=== PATIENT | female | born 1975 | race African-American/Black ===

== ENCOUNTER 2018-05-15 00:17 | Emergency (ER) | payer MEDICAID ==
[2018-05-15 00:50] LABS: % BASOPHILS 0.7 % (0.0-2.0); % EOSINOPHILS 0.6 % (0.0-5.0); % LYMPHOCYTES 41.2 % (20.0-50.0); % MONOCYTES 5.6 % (2.0-10.0); % NEUTROPHILS 51.9 % (40.0-80.0); HEMATOCRIT 41.2 % (41.0-60); HEMOGLOBIN 13.3 gm/dL (12-16); LYMPHOCYTE ABSOLUTE 2.7 Th/cmm (1.5-3.0); MEAN CELL VOLUME 83.3 fl (81-100); MEAN CORPUSCULAR HEMOGLOBIN 26.9 pg (27.0-31.0); MEAN CORPUSCULAR HGB CONC 32.3 pg (28.0-36.0); MONOCYTE ABSOLUTE 0.4 Th/cmm (0.3-1.0); NEUTROPHILE ABSOLUTE 3.5 Th/cmm (1.8-8.0); PLATELET COUNT 266 Th/cmm (150-400); RED BLOOD COUNT 4.95 Mil/cmm (3.80-5.10); RED CELL DISTRIBUTION WIDTH 13.8 % (11.5-20.0); WHITE BLOOD COUNT 6.6 Th/cmm (4.8-10.8)
--- NOTE | 2018-05-15 01:26 | ED Physician Chart ---
ED Chief Complaint/HPI - Patient Information Date Seen:: 05/15/18 Time Seen:: 01:00 Chief Complaint:: CP History of Present Illness:: 42 YR OLD BF HX OF LUMPECTOMY LT BREAST FOR CANCER WITH PAIN LT LOWER BREAST AREA SHARP STABBING GAS PAINS LIKE TOOK A SPRITE AND PAIN BECAME WORSE Allergies:: Allergies Allergy/AdvReac Type Severity Reaction Status Date / Time metronidazole [From Flagyl] Allergy Verified 05/15/18 00:28 morphine Allergy Verified 05/15/18 00:28 Vitals:: Vital Signs - 8 hr 05/15/18 05/15/18 00:17 00:48 Temp 97.5 F 97.5 F HR 81 81 RR 18 18 BP 129/80 128/87 O2 Sat % 100 98 ED Review of Systems - Review of Systems General/Constitutional: No fever, No chills, No weight loss, No weakness, No diaphoresis, No edema, No loss of appetite Skin: No skin lesions, No rash, No bruising Head: No headache, No light-headedness Eyes: No loss of vision, No pain, No diplopia ENT: No earache, No nasal drainage, No sore throat, No tinnitus Neck: No neck pain, No swelling, No thyromegaly, No stiffness, No mass noted Cardio Vascular: Chest pain Pulmonary: No SOB, No cough, No sputum, No wheezing GI: No nausea, No vomiting, No diarrhea, No pain, No melena, No hematochezia, No constipation, No hematemesis G/U: No dysuria, No frequency, No hematuria Musculoskeletal: No bone or joint pain, No back pain, No muscle pain Endocrine: No polyuria, No polydipsia Psychiatric: No prior psych history, No depression, No anxiety, No suicidal ideation Hematopoietic: No bruising, No lymphadenopathy Allergic/Immuno: No urticaria, No angioedema Neurological: No syncope, No focal symptoms, No weakness, No paresthesia, No headache, No seizure, No dizziness, No confusion, No vertigo ED Past Medical History - Past Medical History Past Medical History: Other (LT BREAST CA ON CHEMO) Family Medical History - Family Member Mother History Unknown: Yes ED Physical Exam - Physical Examination General/Constitutional: Awake, Well-developed, well-nourished, Alert, No distress, GCS 15, Non-toxic appearing, Ambulatory Other Gen/Cons comments:: MILD DISTRESS SEC TO LT BREAST PAIN Head: Atraumatic Eyes: Lids, conjuctiva normal, PERRL, EOMI Skin: Nl inspection, No rash, No skin lesions, No ecchymosis, Well hydrated, No lymphadenopathy ENMT: External ears, nose nl, Nasal exam nl, Lips, teeth, gums nl Neck: Nontender, Full ROM w/o pain, No JVD, No nuchal rigidity, No bruit, No mass, No stridor Respiratory: Nl effort/Exclusion, Clear to Auscultation, No Wheeze/Rhonchi/Rales Cardio Vascular: RRR, No murmur, gallop, rubs, NL S1 S2 GI: No tenderness/rebounding/guarding, No organomegaly, No hernia, Normal BS's, Nondistended, No mass/bruits, No McBurney tenderness : No CVA tenderness Extremities: No tenderness or effusion, Full ROM, normal strength in all extremities, No edema, Normal digits & nails Neuro/Psych: Alert/oriented, DTR's symmetric, Normal sensory exam, Normal motor strength, Judgement/insight normal, Mood normal, Normal gait, No focal deficits Misc: Normal back, No paraspinal tenderness ED Labs/Radiology/EKG Results - EKG Interpretations EKG Time:: 12:27 Rate & Rhythm: NSR [place]: PROBABLE ANTERIOR INFARCT AGE UNDETERMINATE ED Assessment - Assessment General Assessment: LT BREAST PAIN HX OF BREAST CA 3 YRS AGO WITH LUMPECTOMY CHEMO HAVING SOME SIDE EFFECTS ED Septic Shock - . Is Septic Shock (SBP<90, OR Lactate>4 mmol\L) present?: No - <6hrs of presentation: Vital Signs: Vital Signs - 8 hr 05/15/18 05/15/18 00:17 00:48 Temp 97.5 F 97.5 F HR 81 81 RR 18 18 BP 129/80 128/87 O2 Sat % 100 98 ED Reassessment (Disposition) - Reassessment Reassessment:: LT BREAST CP Reassessment Condition:: Improved - Diagnosis Diagnosis:: ABOVE - Aftercare/Follow up Instructions Aftercare/Follow-Up Instructions:: Counseled pt regarding lab results/diagnosis & need follow up - Patient Disposition Discharge/Transfer:: Home Condition at Disposition:: Stable
[2018-05-15] MEDS ORDERED: Pantoprazole 80 MG in Sodium Chloride 0.9% 100 ML IV ONE (01:32)
[2018-05-15] MEDS ORDERED: Donnatal Liq 5 ML UDC PO STA (01:33)
[2018-05-15] MEDS ORDERED: Simethicone 20 mg/0.3 mL 30mL Bottle ONE (01:48)
[2018-05-15 03:44] LABS: ANION GAP 16.5 (7.0-16.0); CHLORIDE 104 mEq/L (98-107); POTASSIUM SERUM 3.5 mEq/L (3.5-5.1); SODIUM SERUM 143 mEq/L (136-145)
[2018-05-15 03:45] LABS: ALB/GLOB RATIO 1.1 (1.0-1.8); ALBUMIN 4.2 gm/dL (3.7-5.3); BUN - UREA NITROGEN 13 mg/dL (7-25); CALCIUM SERUM 9.7 mg/dL (8.6-10.3); CREATININE - SERUM 0.9 mg/dL (0.6-1.2); GFR AFRICAN-AMERICAN > 60.0 ml/min (>90); GFR NON AFRICAN-AMERICAN > 60.0 ml/min; GLUCOSE 83 mg/dL (70-105); TOTAL PROTEIN,SERUM 8.2 gm/dL (6.0-8.3)
[2018-05-15 03:47] LABS: BILIRUBIN,TOTAL 0.3 mg/dL (0.3-1.0); SGOT 26 U/L (13-39); SGPT/ALT 27 U/L (7-52)
[2018-05-15 03:48] LABS: ALKALINE PHOSPHATASE 101 U/L (34-104)
== END 2018-05-15 02:40 | disposition home or self-care (01) ==
LOC: ER 00:17
DX: R07.89 Other chest pain (principal); N64.4 Mastodynia; Z85.3 Personal history of malignant neoplasm of breast; Z98.890 Other specified postprocedural states; Z88.5 Allergy status to narcotic agent; Z88.1 Allergy status to other antibiotic agents
CPT/HCPCS: 99284; 96365; 93005; 84484; 36415; 85025; 82553; 80053; C9113; Z7502